=== PATIENT | male | born 1955 | race Caucasian/White ===

== ENCOUNTER 2020-09-25 13:11 | Inpatient (IN) | payer OTHER ==
[~2020-09-25] VITALS: Ht 180.3 cm; Wt 100.5 kg
[2020-09-25 13:53] LABS: BASOPHILS # (AUTO) 0.1 (0.0-0.1); BASOPHILS % 0.6 % (0.0-1.0); EOSINOPHILS % 0.3 % (0.0-6.0); HEMATOCRIT 50.2 % (38.2-49.6); HEMOGLOBIN 17.2 g/dL (14.0-18.0); LYMPHOCYTES # (AUTO) 2.5 (1.0-3.2); LYMPHOCYTES % 23.5 % (18.0-39.1); MEAN CORPUSCULAR HEMOGLOBIN 29.2 pg (28-32); MEAN CORPUSCULAR HGB CONC 34.3 g/dL (31-35); MEAN CORPUSCULAR VOLUME 85.2 fL (81-99); MONOCYTES # (AUTO) 0.5 (0.2-0.8); MONOCYTES % 4.6 % (4.4-11.3); NEUTROPHILS # (AUTO) 7.6 (2.1-6.9); NEUTROPHILS % 70.6 % (38.7-80.0); PLATELET COUNT 308 x10e3/uL (140-360); RED BLOOD COUNT 5.89 x10e6/uL (4.3-5.7); RED CELL DISTRIBUTION WIDTH 13.5 % (11.7-14.4)
[2020-09-25 14:16] LABS: ALANINE AMINOTRANSFERASE 28 IU/L (0-55); ALBUMIN 4.1 g/dL (3.5-5.0); ALKALINE PHOSPHATASE 99 IU/L (40-150); BLOOD UREA NITROGEN 12 mg/dL (7-26); BUN/CREATININE RATIO 12 (6-25); CALCIUM 9.2 mg/dL (8.4-10.2); CARBON DIOXIDE 28 mmol/L (22-29); CHLORIDE 99 mmol/L (98-107); CREATININE, SERUM 0.98 mg/dL (0.72-1.25); EST GLOMERULAR FILTRATION RATE > 60 ML/MIN (60-); GLUCOSE 283 mg/dL (74-118); SODIUM 137 mmol/L (136-145)
[2020-09-25] MEDS ORDERED: ONDANSETRON HCL INJ 2MG/ML 2ML 2 MG/ML VIAL IV PRN (14:45)
[2020-09-25] MEDS ORDERED: MORPHINE SULFATE 2 MG/ML SYR 1ML IV PRN (14:45)
[2020-09-25] MEDS ORDERED: MORPHINE SULFATE INJ 4 MG/ML INJ 1ML IV PRN (15:00)
[2020-09-25] MEDS: VANCOMYCIN 1GM/NS 250 ML 250 ML IV SCH (17:03)
[2020-09-25] MEDS ORDERED: DEXTROSE 50% SYRINGE 50 ML IV PRN (17:30)
[2020-09-25] MEDS ORDERED: PIPER-TAZ 3.375 GM 50 ML IV SCH (18:00)
[2020-09-25 18:15] VITALS: BP 156/83
[2020-09-25 20:42] VITALS: BP 133/59
[2020-09-25] MEDS: INSULIN LISPRO 100 UNIT/1 ML 3ML VIAL SQ SCH (21:00)
[2020-09-25] MEDS ORDERED: AMLODIPINE BESYL5 MG PO (22:49)
[2020-09-25] MEDS ORDERED: AMIODARONE HCL200 MG (22:49)
[2020-09-25] MEDS ORDERED: XARELTO20 MG (22:49)
[2020-09-25] MEDS ORDERED: CRESTOR10 MG (22:49)
[2020-09-25] MEDS ORDERED: METOPROLOL TART25 MG PO (22:49)
[2020-09-25] MEDS ORDERED: METFORMIN HCL500 MG PO (22:49)
[2020-09-26] VITALS (10 sets, daily range): BP systolic 110–148; BP diastolic 61–78
[2020-09-26] MEDS ORDERED: BENZONATATE 100 MG CAP PO PRN (00:30)
[2020-09-26] MEDS ORDERED: DOCUSATE SODIUM 100 MG CAP PO PRN (00:30)
[2020-09-26] MEDS ORDERED: GUAIFENESIN/CODEINE 10 ML CUP PO PRN (00:30)
[2020-09-26] MEDS ORDERED: CHLORASEPTIC SPRAY 177 ML BTL MM PRN (00:30)
[2020-09-26] MEDS ORDERED: POTASSIUM CHLORIDE 20 MEQ TAB CR PO PRN (00:30)
[2020-09-26] MEDS ORDERED: DEXTROSE 50% SYRINGE 50 ML IV PRN ×2 (00:30→00:45)
[2020-09-26] MEDS ORDERED: POLYETHYLENE GLYCOL 3350 17 GM PACK PO PRN (00:30)
[2020-09-26] MEDS ORDERED: ONDANSETRON HCL INJ 2MG/ML 2ML 2 MG/ML VIAL IV PRN (00:30)
[2020-09-26] MEDS ORDERED: HYDROCODONE/APAP 5MG-325MG TAB PO PRN (00:30)
[2020-09-26] MEDS ORDERED: ACETAMINOPHEN 325 MG TAB PO PRN (00:30)
[2020-09-26] MEDS ORDERED: MELATONIN 5 MG TABLET PO PRN (00:30)
[2020-09-26] MEDS ORDERED: DIPHENHYDRAMINE HCL 25 MG CAP PO PRN (00:30)
[2020-09-26] MEDS ORDERED: SIMETHICONE 80 MG CHEW PO PRN (00:30)
[2020-09-26] MEDS ORDERED: HYDRALAZINE HCL 20 MG/ML VIAL IV PRN (00:30)
[2020-09-26] MEDS ORDERED: ALBUTEROL/IPRATROPIUM 3 ML NEB NEB PRN (00:30)
[2020-09-26] MEDS: PIPER-TAZ 3.375 GM 50 ML IV SCH ×4 (00:52→23:15)
[2020-09-26] MEDS ORDERED: SODIUM CHLORIDE 0.9% 250ML 250 ML ONE (01:03)
[2020-09-26] MEDS: VANCOMYCIN 1GM/NS 250 ML 250 ML IV SCH ×3 (04:30→18:40)
[2020-09-26 06:48] LABS: BASOPHILS # (AUTO) 0.1 (0.0-0.1); BASOPHILS % 0.6 % (0.0-1.0); EOSINOPHILS # (AUTO) 0.1 (0.0-0.4); EOSINOPHILS % 0.7 % (0.0-6.0); HEMATOCRIT 46.4 % (38.2-49.6); HEMOGLOBIN 15.9 g/dL (14.0-18.0); LYMPHOCYTES # (AUTO) 2.9 (1.0-3.2); LYMPHOCYTES % 28.9 % (18.0-39.1); MEAN CORPUSCULAR HEMOGLOBIN 29.3 pg (28-32); MEAN CORPUSCULAR HGB CONC 34.3 g/dL (31-35); MEAN CORPUSCULAR VOLUME 85.5 fL (81-99); MONOCYTES # (AUTO) 0.6 (0.2-0.8); MONOCYTES % 6.1 % (4.4-11.3); NEUTROPHILS # (AUTO) 6.3 (2.1-6.9); NEUTROPHILS % 63.3 % (38.7-80.0); PLATELET COUNT 301 x10e3/uL (140-360); RED BLOOD COUNT 5.43 x10e6/uL (4.3-5.7); RED CELL DISTRIBUTION WIDTH 13.5 % (11.7-14.4)
[2020-09-26 07:12] LABS: ALANINE AMINOTRANSFERASE 27 IU/L (0-55); ALBUMIN 3.7 g/dL (3.5-5.0); ALBUMIN/GLOBULIN RATIO 0.9 (0.8-2.0); ALKALINE PHOSPHATASE 81 IU/L (40-150); ANION GAP 14.1 mmol/L (8-16); BLOOD UREA NITROGEN 11 mg/dL (7-26); BUN/CREATININE RATIO 14 (6-25); CALCIUM 9.1 mg/dL (8.4-10.2); CARBON DIOXIDE 24 mmol/L (22-29); CHLORIDE 102 mmol/L (98-107); CREATININE, SERUM 0.79 mg/dL (0.72-1.25); EST GLOMERULAR FILTRATION RATE > 60 ML/MIN (60-); GLUCOSE 174 mg/dL (74-118); POTASSIUM 4.1 mmol/L (3.5-5.1); SODIUM 136 mmol/L (136-145)
[2020-09-26] MEDS: AMIODARONE HCL 200 MG TAB PO SCH (08:22)
[2020-09-26] MEDS: PANTOPRAZOLE SOD 40 MG TABEC PO SCH (08:22)
[2020-09-26] MEDS: METOPROLOL TARTRATE 25 MG TAB PO SCH (08:22)
[2020-09-26] MEDS: AMLODIPINE BESYLATE 5 MG TAB PO SCH (08:23)
[2020-09-26] MEDS: INSULIN LISPRO 100 UNIT/1 ML 3ML VIAL SQ SCH ×4 (10:47→21:00)
[2020-09-26] MEDS: POVIDONE IODINE 30 GM TUBE TOP SCH ×2 (12:12→17:00)
[2020-09-26] MEDS: ENOXAPARIN SOD INJ 40 MG/0.4 ML SYR SC SCH (17:25)
[2020-09-27] VITALS (12 sets, daily range): BP systolic 104–154; BP diastolic 66–87
[2020-09-27] MEDS: VANCOMYCIN 1GM/NS 250 ML 250 ML IV SCH ×2 (05:30→17:00)
[2020-09-27] MEDS: PIPER-TAZ 3.375 GM 50 ML IV SCH ×3 (06:21→21:07)
[2020-09-27] MEDS: INSULIN LISPRO 100 UNIT/1 ML 3ML VIAL SQ SCH ×4 (07:30→22:02)
[2020-09-27] MEDS: PANTOPRAZOLE SOD 40 MG TABEC PO SCH (07:30)
[2020-09-27] MEDS ORDERED: NICOTINE 21 MG/EA PATCH TOP ONE (09:00)
[2020-09-27] MEDS: POVIDONE IODINE 30 GM TUBE TOP SCH ×2 (11:00→17:46)
[2020-09-27] MEDS ORDERED: HEPARIN SOD/SOD CHLORIDE 2,000 ML ONE (12:18)
[2020-09-27] MEDS ORDERED: IOPAMIDOL 300MG/ML 100 ML INFUS..BTL IV ONE ×2 (12:18→13:06)
[2020-09-27] MEDS ORDERED: LIDOCAINE HCL 2% LOCAL 20 ML VIAL ONE (12:18)
[2020-09-27] MEDS ORDERED: FENTANYL CITRATE/PF 100MCG/2 ML INJ ONE (12:18)
[2020-09-27] MEDS ORDERED: MIDAZOLAM HCL 2 MG/2 ML VIAL ONE (12:18)
[2020-09-27] MEDS ORDERED: SODIUM CHLORIDE 0.9% 1000ML 1,000 ML ONE (12:18)
[2020-09-27] MEDS ORDERED: PROTAMINE SULFATE 10 MG/ML 5 ML VIAL ONE (13:12)
[2020-09-27] MEDS ORDERED: SODIUM CHLORIDE 0.9% 50ML 50 ML ONE (13:12)
[2020-09-27] MEDS: AMLODIPINE BESYLATE 5 MG TAB PO SCH (16:58)
[2020-09-27] MEDS: NICOTINE 21 MG/EA PATCH TOP SCH (16:58)
[2020-09-27] MEDS: METOPROLOL TARTRATE 25 MG TAB PO SCH (16:59)
[2020-09-27] MEDS: AMIODARONE HCL 200 MG TAB PO SCH (16:59)
[2020-09-27] MEDS: ENOXAPARIN SOD INJ 40 MG/0.4 ML SYR SC SCH (17:11)
[2020-09-28] VITALS (8 sets, daily range): BP systolic 114–129; BP diastolic 53–77
[2020-09-28] MEDS: VANCOMYCIN 1GM/NS 250 ML 250 ML IV SCH ×2 (03:45→17:00)
[2020-09-28] MEDS: PIPER-TAZ 3.375 GM 50 ML IV SCH ×2 (05:37→13:09)
[2020-09-28 06:09] LABS: ANION GAP 11.3 mmol/L (8-16); BLOOD UREA NITROGEN 14 mg/dL (7-26); BUN/CREATININE RATIO 16 (6-25); CALCIUM 9.1 mg/dL (8.4-10.2); CARBON DIOXIDE 29 mmol/L (22-29); CHLORIDE 104 mmol/L (98-107); CREATININE, SERUM 0.89 mg/dL (0.72-1.25); EST GLOMERULAR FILTRATION RATE > 60 ML/MIN (60-); GLUCOSE 177 mg/dL (74-118); MAGNESIUM 1.9 MG/DL (1.3-2.1); POTASSIUM 4.3 mmol/L (3.5-5.1); SODIUM 140 mmol/L (136-145)
[2020-09-28] MEDS: PANTOPRAZOLE SOD 40 MG TABEC PO SCH (08:59)
[2020-09-28] MEDS: AMIODARONE HCL 200 MG TAB PO SCH (09:01)
[2020-09-28] MEDS: INSULIN LISPRO 100 UNIT/1 ML 3ML VIAL SQ SCH ×4 (09:01→21:16)
[2020-09-28] MEDS: METOPROLOL TARTRATE 25 MG TAB PO SCH (09:02)
[2020-09-28] MEDS: POVIDONE IODINE 30 GM TUBE TOP SCH ×2 (09:02→17:09)
[2020-09-28] MEDS: NICOTINE 21 MG/EA PATCH TOP SCH (09:02)
[2020-09-28] MEDS: AMLODIPINE BESYLATE 5 MG TAB PO SCH (09:02)
[2020-09-28] MEDS ORDERED: ONDANSETRON HCL 4 MG ORAL DISINTEGRATING TAB PO PRN (14:15)
[2020-09-28] MEDS: ENOXAPARIN SOD INJ 40 MG/0.4 ML SYR SC SCH (17:09)
[2020-09-29] VITALS (8 sets, daily range): BP systolic 117–164; BP diastolic 65–91
[2020-09-29] MEDS: VANCOMYCIN 1GM/NS 250 ML 250 ML IV SCH ×2 (04:30→16:30)
[2020-09-29] MEDS: PIPER-TAZ 3.375 GM 50 ML IV SCH ×3 (05:30→21:14)
[2020-09-29 06:10] LABS: BASOPHILS # (AUTO) 0.1 (0.0-0.1); BASOPHILS % 0.8 % (0.0-1.0); EOSINOPHILS # (AUTO) 0.1 (0.0-0.4); EOSINOPHILS % 0.8 % (0.0-6.0); HEMATOCRIT 45.2 % (38.2-49.6); HEMOGLOBIN 15.3 g/dL (14.0-18.0); LYMPHOCYTES # (AUTO) 2.9 (1.0-3.2); LYMPHOCYTES % 33.8 % (18.0-39.1); MEAN CORPUSCULAR HEMOGLOBIN 29.7 pg (28-32); MEAN CORPUSCULAR HGB CONC 33.8 g/dL (31-35); MEAN CORPUSCULAR VOLUME 87.8 fL (81-99); MONOCYTES # (AUTO) 0.7 (0.2-0.8); MONOCYTES % 7.6 % (4.4-11.3); NEUTROPHILS # (AUTO) 4.8 (2.1-6.9); NEUTROPHILS % 56.6 % (38.7-80.0); PLATELET COUNT 270 x10e3/uL (140-360); RED BLOOD COUNT 5.15 x10e6/uL (4.3-5.7); RED CELL DISTRIBUTION WIDTH 13.3 % (11.7-14.4)
[2020-09-29 06:30] LABS: ALANINE AMINOTRANSFERASE 25 IU/L (0-55); ALBUMIN 3.4 g/dL (3.5-5.0); ALBUMIN/GLOBULIN RATIO 0.9 (0.8-2.0); ALKALINE PHOSPHATASE 71 IU/L (40-150); ANION GAP 10.9 mmol/L (8-16); BLOOD UREA NITROGEN 10 mg/dL (7-26); BUN/CREATININE RATIO 11 (6-25); CALCIUM 8.8 mg/dL (8.4-10.2); CARBON DIOXIDE 28 mmol/L (22-29); CHLORIDE 104 mmol/L (98-107); CREATININE, SERUM 0.89 mg/dL (0.72-1.25); EST GLOMERULAR FILTRATION RATE > 60 ML/MIN (60-); GLUCOSE 190 mg/dL (74-118); POTASSIUM 3.9 mmol/L (3.5-5.1); SODIUM 139 mmol/L (136-145)
[2020-09-29] MEDS: PANTOPRAZOLE SOD 40 MG TABEC PO SCH (07:30)
[2020-09-29] MEDS: INSULIN LISPRO 100 UNIT/1 ML 3ML VIAL SQ SCH ×4 (07:30→20:36)
[2020-09-29] MEDS: POVIDONE IODINE 30 GM TUBE TOP SCH ×2 (09:00→17:00)
[2020-09-29] MEDS: NICOTINE 21 MG/EA PATCH TOP SCH (09:30)
[2020-09-29] MEDS ORDERED: BUPIVACAINE HCL 0.5% INJ 30 ML VIAL INJ ONE (13:26)
[2020-09-29] MEDS ORDERED: NEOSTIGMINE 1 MG/ML 10ML VIAL ONE (13:48)
[2020-09-29] MEDS ORDERED: EPHEDRINE SULFATE INJ 50 MG/ML VIAL ONE (13:54)
[2020-09-29] MEDS ORDERED: LIDOCAINE HCL 2% JELLY 5 ML TUBE ONE (13:54)
[2020-09-29] MEDS ORDERED: DESFLURANE 240 ML BTL INH ONE (13:54)
[2020-09-29] MEDS ORDERED: PROPOFOL IV EMULSION 10 MG/ML 20 ML VIAL ONE (13:54)
[2020-09-29] MEDS ORDERED: ONDANSETRON HCL INJ 2MG/ML 2ML 2 MG/ML VIAL ONE (13:54)
[2020-09-29] MEDS: AMIODARONE HCL 200 MG TAB PO SCH (15:30)
[2020-09-29] MEDS: AMLODIPINE BESYLATE 5 MG TAB PO SCH (15:30)
[2020-09-29] MEDS: ENOXAPARIN SOD INJ 40 MG/0.4 ML SYR SC SCH (17:00)
[2020-09-29] MEDS: CRESTOR 10MG PO SCH (20:36)
[2020-09-30] VITALS (8 sets, daily range): BP systolic 104–150; BP diastolic 54–83
[2020-09-30] MEDS: VANCOMYCIN 1GM/NS 250 ML 250 ML IV SCH ×2 (04:52→16:30)
[2020-09-30] MEDS: PIPER-TAZ 3.375 GM 50 ML IV SCH ×3 (06:35→21:40)
[2020-09-30] MEDS: INSULIN LISPRO 100 UNIT/1 ML 3ML VIAL SQ SCH ×4 (07:30→20:25)
[2020-09-30] MEDS: PANTOPRAZOLE SOD 40 MG TABEC PO SCH (08:00)
[2020-09-30] MEDS: METOPROLOL SUCCINATE 25 MG TAB XL PO SCH (08:56)
[2020-09-30] MEDS: ASPIRIN 81 MG ENTERIC COATED PO SCH (08:56)
[2020-09-30] MEDS: AMIODARONE HCL 200 MG TAB PO SCH (08:56)
[2020-09-30] MEDS: AMLODIPINE BESYLATE 5 MG TAB PO SCH (08:56)
[2020-09-30] MEDS: NICOTINE 21 MG/EA PATCH TOP SCH (08:56)
[2020-09-30] MEDS: POVIDONE IODINE 30 GM TUBE TOP SCH ×2 (09:00→17:00)
[2020-09-30] MEDS: ENOXAPARIN SOD INJ 40 MG/0.4 ML SYR SC SCH (17:07)
[2020-09-30] MEDS: CRESTOR 10MG PO SCH (20:15)
[2020-10-01] VITALS (8 sets, daily range): BP systolic 99–142; BP diastolic 55–76
[2020-10-01] MEDS: VANCOMYCIN 1GM/NS 250 ML 250 ML IV SCH (04:51)
[2020-10-01] MEDS: PIPER-TAZ 3.375 GM 50 ML IV SCH ×3 (06:36→22:49)
[2020-10-01] MEDS: PANTOPRAZOLE SOD 40 MG TABEC PO SCH (07:30)
[2020-10-01] MEDS: INSULIN LISPRO 100 UNIT/1 ML 3ML VIAL SQ SCH ×4 (07:30→22:13)
[2020-10-01] MEDS: AMLODIPINE BESYLATE 5 MG TAB PO SCH (08:59)
[2020-10-01] MEDS: AMIODARONE HCL 200 MG TAB PO SCH (08:59)
[2020-10-01] MEDS: ASPIRIN 81 MG ENTERIC COATED PO SCH (08:59)
[2020-10-01] MEDS: METOPROLOL SUCCINATE 25 MG TAB XL PO SCH (09:00)
[2020-10-01] MEDS: POVIDONE IODINE 30 GM TUBE TOP SCH ×2 (09:00→17:00)
[2020-10-01] MEDS: NICOTINE 21 MG/EA PATCH TOP SCH (09:00)
[2020-10-01] MEDS ORDERED: IOPAMIDOL 370 MG/ML 200 ML INFUS..BTL INJ ONE (14:24)
[2020-10-01] MEDS ORDERED: SODIUM CHLORIDE 0.9% 100 ML ONE (14:24)
[2020-10-01] MEDS ORDERED: DAPTOMYCIN 500mg 10ML 500 MG in SODIUM CHLORIDE 0.9% 100 ML 100 ML IV ONE (17:00)
[2020-10-01] MEDS: ENOXAPARIN SOD INJ 40 MG/0.4 ML SYR SC SCH (17:36)
[2020-10-01] MEDS: CRESTOR 10MG PO SCH (22:10)
[2020-10-02 00:55] VITALS: BP 103/57
[2020-10-02 04:00] VITALS: BP 129/73
[2020-10-02] MEDS: PIPER-TAZ 3.375 GM 50 ML IV SCH (06:15)
[2020-10-02 08:18] VITALS: BP 139/75
[2020-10-02 08:20] VITALS: BP 139/75
[2020-10-02] MEDS: ASPIRIN 81 MG ENTERIC COATED PO SCH (08:27)
[2020-10-02] MEDS: PANTOPRAZOLE SOD 40 MG TABEC PO SCH (08:28)
[2020-10-02] MEDS: AMLODIPINE BESYLATE 5 MG TAB PO SCH (08:28)
[2020-10-02] MEDS: AMIODARONE HCL 200 MG TAB PO SCH (08:28)
[2020-10-02] MEDS: METOPROLOL SUCCINATE 25 MG TAB XL PO SCH (08:28)
[2020-10-02] MEDS: NICOTINE 21 MG/EA PATCH TOP SCH (08:49)
[2020-10-02] MEDS ORDERED: DAPTOMYCIN 500mg 10ML 500 MG in SODIUM CHLORIDE 0.9% 100 ML 100 ML IV ONE (10:00)
[2020-10-02] MEDS: INSULIN LISPRO 100 UNIT/1 ML 3ML VIAL SQ SCH ×2 (11:23→12:00)
[2020-10-02 11:27] VITALS: BP 157/80
[2020-10-02] MEDS: POVIDONE IODINE 30 GM TUBE TOP SCH (11:40)
[2020-10-02] MEDS ORDERED: PLAVIX75 MG PO (12:41)
[2020-10-02] MEDS ORDERED: TYLENOL # 31 EA PO (12:42)
== END 2020-10-02 14:07 | disposition home health service (06) | DRG 617 ==
LOC: ER 13:58 → ERHOLD 14:45 → MED/SURG3 18:15
PROVIDERS: ADMIT Internal Medicine; ATTEND Internal Medicine
PROC: B41D1ZZ Fluoroscopy of Aorta and Bilateral Lower Extremity Arteries using Low Osmolar Contrast (ICD-10-PCS; principal; 2020-09-27)
PROC: B41F1ZZ Fluoroscopy of Right Lower Extremity Arteries using Low Osmolar Contrast (ICD-10-PCS; 2020-09-27)
PROC: 02HV33Z Insertion of Infusion Device into Superior Vena Cava, Percutaneous Approach (ICD-10-PCS; 2020-09-28)
PROC: B548ZZA Ultrasonography of Superior Vena Cava, Guidance (ICD-10-PCS; 2020-09-28)
PROC: 0Y6R0Z3 Detachment at Right 2nd Toe, Low, Open Approach (ICD-10-PCS; 2020-09-29)
DX: E11.621 Type 2 diabetes mellitus with foot ulcer (principal); M86.171 Other acute osteomyelitis, right ankle and foot; E11.51 Type 2 diabetes mellitus with diabetic peripheral angiopathy without gangrene; L03.031 Cellulitis of right toe; E11.65 Type 2 diabetes mellitus with hyperglycemia; E11.42 Type 2 diabetes mellitus with diabetic polyneuropathy; E66.01 Morbid (severe) obesity due to excess calories; I10 Essential (primary) hypertension; E78.5 Hyperlipidemia, unspecified; Z79.01 Long term (current) use of anticoagulants; Z83.3 Family history of diabetes mellitus; Z82.49 Family history of ischemic heart disease and other diseases of the circulatory system; E11.69 Type 2 diabetes mellitus with other specified complication; F17.210 Nicotine dependence, cigarettes, uncomplicated; Z91.14 Patient's other noncompliance with medication regimen; Z79.84 Long term (current) use of oral hypoglycemic drugs; Z68.30 Body mass index [BMI] 30.0-30.9, adult; Z20.828 Contact with and (suspected) exposure to other viral communicable diseases; B95.7 Other staphylococcus as the cause of diseases classified elsewhere; I65.21 Occlusion and stenosis of right carotid artery
CPT/HCPCS: 36247; 36415; 36569; 70498; 71045; 71046; 75625; 75716; 80048; 80053; 80202; 82948; 83036; 83735; 85025; 85651; 86140; 87040; 87071; 87075; 87205; 88304; 88305; 88311; 93005; 93306; 93880; 93925; 93970; 99152; 99153; 99251; 99284; C1766; C1769; C1887; J1650; J2001; J2250; J2405; J2543; J2710; J2720; J3010; J3370; J7030; J7050; Q9967; U0002

== ENCOUNTER → 2020-11-27 | Outpatient (CLI) | payer OTHER ==
[~2020-11-27] MED LIST: AMIODARONE HCL200 MG; AMLODIPINE BESYL5 MG PO; CRESTOR10 MG; METFORMIN HCL500 MG PO; METOPROLOL TART25 MG PO; PLAVIX75 MG PO; TYLENOL # 31 EA PO; XARELTO20 MG
== END ==
LOC: RESP 09:52
PROVIDERS: ATTEND Thoracic Surgery (Cardiothoracic Vascular Surgery)
DX: R06.02 Shortness of breath (principal)
CPT/HCPCS: 94060; 94664; 94727; 94729